=== PATIENT | female | born 1945 | race Caucasian/White ===

== ENCOUNTER 2022-02-05 09:53 | Emergency (ER) | payer MEDICARE, SELFPAY ==
[2022-02-05] VITALS (16 sets, daily range): BP systolic 130–178; BP diastolic 60–77; PULSE 54–93; RESP 18–20; TEMP 36.3; O2SAT 93–97
--- NOTE | 2022-02-05 09:55 | DI.RAD.S_ITS ---
PROCEDURE: XR CHEST 1V INDICATIONS: chest pain TECHNIQUE: One view of the chest was acquired. COMPARISON: None. FINDINGS: Surgical changes and devices: None. Lungs and pleura: Right lateral upper lobe pleuroparenchymal thickening and tethering of the major fissure. Mild asymmetric elevation of the right lateral hemidiaphragm. Left lung is normally aerated. Mediastinum: Mediastinal contours appear normal. Heart size is normal. Bones and chest wall: No suspicious bony lesions. Overlying soft tissues appear unremarkable. Mild to moderate osteoarthritic change in both glenohumeral joints. T12 and probably L2 compression fractures. IMPRESSION: 1. Right hemithorax volume loss right subpleural upper lobe pleural thickening and probable scarring. This may be postsurgical, post infectious, or post treatment. Acute process is less likely. 2. Thoracolumbar compression fractures. Dictated by: Danita Clemons M.D. on 02/05/2022 at 9:31 Approved by: Danita Clemons M.D. on 02/05/2022 at 9:33
--- NOTE | 2022-02-05 09:59 | ED.CHESTPAIN ---
HPI - Chest Pain General Chief Complaint: Chest Pain Stated Complaint: COVID 1 wk ago, weakness Time Seen by Provider: 02/05/22 09:55 History of Present Illness HPI narrative: 76-year-old female nonsmoker with recent COVID diagnosis presents with a reproducible sharp and stabbing right anterior chest pain for the past few days. She is been at a local adult home and has been taking Paxlovid. She denies runny nose, sore throat. She has had frequent cough. She denies nausea, vomiting or diarrhea. She has right anterior chest pain that is worse with deep breath or palpation. She denies dizziness or lightheadedness. She is had no sputum production. She was admitted at an outside facility a few weeks ago Related Data Allergies Allergy/AdvReac Type Severity Reaction Status Date / Time No Known Drug Allergies Allergy Verified 02/05/22 10:14 Review of Systems Review of Systems Narrative: GENERAL: See HPI HEENT: See HPI RESPIRATORY: See HPI CARDIOVASCULAR: See HPI GASTROINTESTINAL: Denies nausea, vomiting, abdominal pain, diarrhea, constipation, melena. : Denies dysuria, frequency, incontinence, hematuria, urinary retention. MUSCULOSKELETAL: denies weakness, joint pain, or bony pain SKIN: Denies rash, skin lesions, or other NEUROLOGIC: Denies weakness, headache, numbness, change in speech, confusion, seizures, incoordination. PSYCHIATRIC: No concerning psychosocial issues. 12 point review of systems is negative except for those stated above Patient History Social History Smoking Status: Former smoker Exam Narrative Exam Narrative: GENERAL: [76] year old patient appears stated age. Well-developed patient, in mild distress. No hypoxemia or work of breathing HEAD: Atraumatic. Normocephalic. EYES: Pupils equal round and reactive. Extraocular motions intact. No scleral icterus. No injection or drainage. ENT: Nose without bleeding, purulent drainage. Throat without erythema, tonsillar hypertrophy or exudate. Airway patent. NECK: Trachea midline. No midline bony tenderness, step-offs or crepitance. No pain with axial loading. She does have tenderness to palpate in the right-sided paraspinal musculature which seems to be exacerbated by turning her head to the right and use of her right arm. CARDIOVASCULAR: Regular rate and rhythm without murmurs, gallops, or rubs. Right anterior chest tender to palpate, she states this palpation exacerbates the pain that brought her in RESPIRATORY: Clear to auscultation. Breath sounds equal bilaterally. No wheezes, rales, or rhonchi. GASTROINTESTINAL: Abdomen soft, non-tender, nondistended. EXTREMITIES: No edema or joint tenderness. No pain, redness or swelling, most notably no pain whatsoever in her arm BACK: Nontender without deformity or crepitance. No flank tenderness. NEURO: AOx3. SKIN: No rash or erythema of visible areas Initial Vital Signs Initial Vital Signs: Vital Signs Pulse Rate 54 L 02/05/22 09:53 Course Course Course Narrative: Patient had been admitted at an outside facility at the end of December in [place] ([facility]) with chief diagnosis of heavy cough in the setting of back pain and right shoulder pain and was found to have a large consolidation in the right upper lobe with central areas of cavitations concerning for necrotizing pneumonia. She had been Orders Ordered: ED Orders 02/05/22 09:55 XR chest 1V Stat 02/05/22 10:22 EKG-12 Lead Stat 02/05/22 11:05 C-Reactive Protein Quant Stat Complete Blood Count AUTO DIFF Stat Comprehensive Metabolic Panel Stat D Dimer Stat ESR [Erythrocyte Sedimentation Rate] Stat Lactate (Lactic Acid) Stat Magnesium Stat NT-proBNP (BNP-Adult 18+) Stat Procalcitonin Stat Prothrombin Time INR Stat Troponin & CK Cardiac Panel Stat 02/05/22 12:43 CT angio chest PE protocol Stat Discontinued Medications Sodium Chloride (Normal Saline 0.9%) 1,000 mls @ 1,000 mls/hr IV BOLUS ONE Stop: 02/05/22 10:54 Last Admin: 02/05/22: Dose: 1,000 mls/hr Documented By: YARI Vital Signs Vital signs: Vital Signs - 8 hr 02/05/22 10:07 02/05/22 09:53 02/05/22 09:55 Temperature 97.3 F L Pulse Rate 80 54 L 81 Respiratory Rate 20 Blood Pressure 148/72 H Pulse Oximetry 96 96 Oxygen Delivery Method Room Air 02/05/22 09:55 02/05/22 10:00 02/05/22 10:00 Temperature Pulse Rate 80 Respiratory Rate Blood Pressure 148/72 H 143/71 H Pulse Oximetry 97 Oxygen Delivery Method 02/05/22 10:30 02/05/22 10:30 02/05/22 11:00 Temperature Pulse Rate 82 Respiratory Rate Blood Pressure 147/72 H 149/74 H Pulse Oximetry 96 Oxygen Delivery Method 02/05/22 11:00 02/05/22 11:21 02/05/22 11:30 Temperature Pulse Rate 82 87 Respiratory Rate Blood Pressure 139/67 Pulse Oximetry 95 95 Oxygen Delivery Method 02/05/22 12:24 02/05/22 12:25 02/05/22 12:25 Temperature Pulse Rate 90 93 H Respiratory Rate Blood Pressure 141/69 H Pulse Oximetry 95 97 Oxygen Delivery Method 02/05/22 12:30 02/05/22 12:30 02/05/22 13:00 Temperature Pulse Rate 91 H Respiratory Rate Blood Pressure 130/60 147/71 H Pulse Oximetry 97 Oxygen Delivery Method 02/05/22 13:00 02/05/22 13:30 02/05/22 14:00 Temperature Pulse Rate 83 88 91 H Respiratory Rate Blood Pressure Pulse Oximetry 94 94 93 Oxygen Delivery Method 02/05/22 14:22 Temperature Pulse Rate Respiratory Rate 19 Blood Pressure Pulse Oximetry Oxygen Delivery Method MDM - Chest Pain Lab Data Result diagrams: 02/05/22 11:05 02/05/22 11:05 Labs: Lab Results 02/05/22 02/05/22 02/05/22 Range/Units 11:05 11:05 11:05 WBC 14.6 H (4.5-11.0) X10^3/uL RBC 3.29 L (4.0-5.2) X10^6/uL Hgb 10.6 L (12.0-16.0) g/dL Hct 31.7 L (36-46) % MCV 96.2 (80-100) fL MCH 32.2 (26-34) PG MCHC 33.4 (30-36) % RDW 15.1 H (11.6-14.8) % Plt Count 444 H (150-400) X10^3/uL Neut % (Auto) 84.2 H (50-75) % Lymph % (Auto) 6.1 L (25-40) % [place] % (Auto) 9.2 (3-14) % Eos % (Auto) 0.0 L (2-4) % Baso % (Auto) 0.5 (0-2) % Neut # (Auto) 57233 H (9971-3894) /uL Lymph # (Auto) 900 L (9777-3889) /uL [place] # (Auto) 1300 H (0-900) /uL Eos # (Auto) 0 (0-450) /uL Baso # (Auto) 100 (0-100) /uL ESR > 140 H (0-20) MM/HR PT (10.1-12.7) SECONDS INR (0.9-1.3) D-Dimer (<500) ng/ml Sodium (137-145) mmol/L Potassium (3.4-5.1) mmol/L Chloride (98-107) mmol/L Carbon Dioxide (22-32) mmol/L BUN (7-17) mg/dL Creatinine (0.52-1.04) mg/dL Estimated GFR (>60) mL/min BUN/Creatinine Ratio (6-22) Glucose (80-110) mg/dL Lactate (0.7-2.1) mmol/L Calcium (8.4-10.2) mg/dL Magnesium (1.6-2.3) mg/dL Total Bilirubin (0.2-1.3) mg/dL AST (14-36) IU/L ALT (<35) IU/L Alkaline Phosphatase (38-126) U/L Total Creatine Kinase (30-135) U/L CK-MB (CK-2) CK-MB (CK-2) Rel Index Troponin I (0.01-0.034) ng/mL C-Reactive Protein 8.4 H (<1.0) mg/dL NT-Pro-B Natriuret Pep (<125) pg/mL Total Protein (6.3-8.2) g/dL Albumin (3.5-5.0) g/dL Globulin (1.7-4.1) g/dL Albumin/Globulin Ratio (1.0-2.8) Procalcitonin 0.10 (<0.5) ng/mL 02/05/22 02/05/22 02/05/22 Range/Units 11:05 11:05 11:05 WBC (4.5-11.0) X10^3/uL RBC (4.0-5.2) X10^6/uL Hgb (12.0-16.0) g/dL Hct (36-46) % MCV (80-100) fL MCH (26-34) PG MCHC (30-36) % RDW (11.6-14.8) % Plt Count (150-400) X10^3/uL Neut % (Auto) (50-75) % Lymph % (Auto) (25-40) % [place] % (Auto) (3-14) % Eos % (Auto) (2-4) % Baso % (Auto) (0-2) % Neut # (Auto) (2499-9684) /uL Lymph # (Auto) (2171-7037) /uL [place] # (Auto) (0-900) /uL Eos # (Auto) (0-450) /uL Baso # (Auto) (0-100) /uL ESR (0-20) MM/HR PT 14.0 H (10.1-12.7) SECONDS INR 1.2 (0.9-1.3) D-Dimer (<500) ng/ml Sodium 134 L (137-145) mmol/L Potassium 3.3 L (3.4-5.1) mmol/L Chloride 94 L (98-107) mmol/L Carbon Dioxide 30 (22-32) mmol/L BUN 15 (7-17) mg/dL Creatinine 0.81 (0.52-1.04) mg/dL Estimated GFR > 60 (>60) mL/min BUN/Creatinine Ratio 18.5 (6-22) Glucose 118 H (80-110) mg/dL Lactate 1.0 (0.7-2.1) mmol/L Calcium 8.7 (8.4-10.2) mg/dL Magnesium 1.4 L (1.6-2.3) mg/dL Total Bilirubin 0.6 (0.2-1.3) mg/dL AST 26 (14-36) IU/L ALT 16 (<35) IU/L Alkaline Phosphatase 125 (38-126) U/L Total Creatine Kinase < 20 L (30-135) U/L CK-MB (CK-2) TNP CK-MB (CK-2) Rel Index TNP Troponin I < 0.012 (0.01-0.034) ng/mL C-Reactive Protein (<1.0) mg/dL NT-Pro-B Natriuret Pep 446 H (<125) pg/mL Total Protein 8.1 (6.3-8.2) g/dL Albumin 3.7 (3.5-5.0) g/dL Globulin 4.4 H (1.7-4.1) g/dL Albumin/Globulin Ratio 0.8 L (1.0-2.8) Procalcitonin (<0.5) ng/mL 02/05/22 Range/Units 11:05 WBC (4.5-11.0) X10^3/uL RBC (4.0-5.2) X10^6/uL Hgb (12.0-16.0) g/dL Hct (36-46) % MCV (80-100) fL MCH (26-34) PG MCHC (30-36) % RDW (11.6-14.8) % Plt Count (150-400) X10^3/uL Neut % (Auto) (50-75) % Lymph % (Auto) (25-40) % [place] % (Auto) (3-14) % Eos % (Auto) (2-4) % Baso % (Auto) (0-2) % Neut # (Auto) (7302-7678) /uL Lymph # (Auto) (0802-6124) /uL [place] # (Auto) (0-900) /uL Eos # (Auto) (0-450) /uL Baso # (Auto) (0-100) /uL ESR (0-20) MM/HR PT (10.1-12.7) SECONDS INR (0.9-1.3) D-Dimer 1343 H (<500) ng/ml Sodium (137-145) mmol/L Potassium (3.4-5.1) mmol/L Chloride (98-107) mmol/L Carbon Dioxide (22-32) mmol/L BUN (7-17) mg/dL Creatinine (0.52-1.04) mg/dL Estimated GFR (>60) mL/min BUN/Creatinine Ratio (6-22) Glucose (80-110) mg/dL Lactate (0.7-2.1) mmol/L Calcium (8.4-10.2) mg/dL Magnesium (1.6-2.3) mg/dL Total Bilirubin (0.2-1.3) mg/dL AST (14-36) IU/L ALT (<35) IU/L Alkaline Phosphatase (38-126) U/L Total Creatine Kinase (30-135) U/L CK-MB (CK-2) CK-MB (CK-2) Rel Index Troponin I (0.01-0.034) ng/mL C-Reactive Protein (<1.0) mg/dL NT-Pro-B Natriuret Pep (<125) pg/mL Total Protein (6.3-8.2) g/dL Albumin (3.5-5.0) g/dL Globulin (1.7-4.1) g/dL Albumin/Globulin Ratio (1.0-2.8) Procalcitonin (<0.5) ng/mL Urine Dip Bedside Urine Glucose Negative Bedside Urine Bilirubin - Negative Bedside Urine Ketone - Negative Urine Specific [place] 1.01 Bedside Urine Occult Blood - Negative Bedside Urine pH 7 Bedside Urine Protein - Negative Bedside Urine Urobilinogen - Negative Bedside Urine Nitrite - Negative Bedside Urine Leukocytes - Negative Esterase Imaging Data CT scan - chest: Radiologist's Impression: Close Chest CTA (Signed) Danita Clemons - 02/05/22 Chest X-Ray 02/05/22 [place] [address] CT Scan Report Signed Patient: Lindsey Kemp MR#: [id number] : 1945 Acct:[id number] Age/Sex: 76 / F Date of Service: 02/05/22 Loc: ED Accession Number: [id number] ?? Procedure: CT angio chest PE protocol Ordering Provider: Chuckie El D.O. PROCEDURE:? CT ANGIO CHEST PE PROTOCOL ? INDICATIONS:? chest pain, cough, SOB, critical dimer ? TECHNIQUE:? After the administration of intravenous contrast, 2 mm thick sections acquired from the pulmonary apices to the posterior costophrenic angles.? 3-dimensional maximum intensity projection (MIP) coronal and sagittal reformats were then acquired through the thorax.? For radiation dose reduction, the following was used:? automated exposure control, adjustment of mA and/or kV according to patient size.? ? COMPARISON:? None. ? FINDINGS:? Image quality:? Excellent.? ? Pulmonary arteries:? Pulmonary arteries are normal in size, and demonstrate no intraluminal filling defects to suggest central pulmonary embolism.? ? Lungs and pleura:? Central airways are patent.? There is bronchiectasis amidst consolidative change in the medial and caudal right middle lobe.? There is airway occlusion and distal consolidation anteriorly in the lingula.? There is cavitary wedge-shaped area of consolidation with bronchiectasis in the right lateral upper lobe.? There is adjacent parenchymal septal thickening and superior retraction central hilar structures.? There are short segments of pleural calcification within this region.? Left apical pleural thickening and trace calcification.? There are scattered subpleural and parenchymal cysts as well as mild upper lobe centrilobular emphysema. ? Mediastinum:? Heart size is mildly enlarged and there is a small pericardial effusion layering to the right.? There is heavy coronary artery calcification..? Borderline precarinal adenopathy.? One of the largest measures 10 mm in short axis.? No definite hilar adenopathy.? Thoracic aorta is normal in caliber and enhancement.? Esophagus is normal in caliber, without hiatal hernia.? ? Bones and chest wall:? There are multiple compression fractures in the thoracic spine and upper lumbar spine, specifically T7, T9 T12, and L2.? Minimal retropulsion of fracture fragments at T9 and T12.? No suspicious bone lesions in the other osseous structures.? Borderline bilateral axillary adenopathy.? The thyroid gland is normal. ? Abdomen:? Nonobstructing left lower pole intrarenal calcification, and one on the right.? Right posterior cortical renal cyst.? Upper abdominal organs are otherwise normal.? There is heavy abdominal aortic calcification. ? IMPRESSION:? ? 1. No pulmonary embolus. ? 2. Right lateral upper lobe cavitary consolidation with air bronchograms and scarring.? This is likely chronic although an underlying or superimposed infection may be present.? Neoplasm should be considered.? Correlate with patient history. ? 3. 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 ? 3. Findings superimposed on emphysema and scattered parenchymal cysts. ? 4. Cardiomegaly with heavy coronary artery calcification.? Small pericardial effusion present. ? 5. Multiple compression fractures in the thoracolumbar spine.? ? ? Dictated by: Danita Clemons M.D. on 02/05/2022 at 12:53 ? ? Approved by: Danita Clemons M.D. on 02/05/2022 at 13:09 ? [facility] Narrative Medical decision making narrative: Patient presents with a sharp and stabbing reproducible right anterior chest pain that worse with palpation and on some level deep breath. She is had no shortness of breath, fever, chills or increased work of breathing. Images today were obtained and likely reflect ongoing inflammatory change from her previous hospitalization. Discussed with Radiology, this is significantly improved over the radiology report from outside facility. Patient has no increased work of breathing, hypoxemia or other. She is given anti-inflammatories, I did however send antibiotic coverage for possible infectious component in addition. Return precautions discussed and questions answered to her apparent satisfaction
[2022-02-05] MEDS: SODIUM CHLORIDE 0.9% 1,000 ML 1000 ML IV (10:22)
[2022-02-05 11:30] LABS: Add Manual Diff / Slide Review NO; Basophils Absolute Auto 100 /uL (0-100); Basophils Percent Auto 0.5 % (0-2); Eosinophils Absolute Auto 0 /uL (0-450); Hematocrit 31.7 % (36-46); Hemoglobin 10.6 g/dL (12.0-16.0); Lymphocytes Absolute Auto 900 /uL (1100-4500); Lymphocytes Percent Auto 6.1 % (25-40); Mean Corpuscular HGB Conc 33.4 % (30-36); Mean Corpuscular Hemoglobin 32.2 PG (26-34); Mean Corpuscular Volume 96.2 fL (80-100); Monocytes Absolute Auto 1300 /uL (0-900); Monocytes Percent Auto 9.2 % (3-14); Neutrophils Absolute Auto 12300 /uL (1500-7000); Neutrophils Percent Auto 84.2 % (50-75); Platelet Count 444 X10^3/uL (150-400); Red Blood Cell Count 3.29 X10^6/uL (4.0-5.2); Red Cell Distribution Width 15.1 % (11.6-14.8); White Blood Cell Count 14.6 X10^3/uL (4.5-11.0)
[2022-02-05 11:34] LABS: Alanine Aminotransferase 16 IU/L (<35); Albumin 3.7 g/dL (3.5-5.0); Albumin Globulin Ratio 0.8 (1.0-2.8); Alkaline Phosphatase 125 U/L (38-126); Aspartate Aminotransferase 26 IU/L (14-36); BUN Creatinine Ratio 18.5 (6-22); Bilirubin Total 0.6 mg/dL (0.2-1.3); Blood Urea Nitrogen 15 mg/dL (7-17); Calcium 8.7 mg/dL (8.4-10.2); Carbon Dioxide 30 mmol/L (22-32); Chloride 94 mmol/L (98-107); Creatine Kinase < 20 U/L (30-135); Estimated Glomerular Filt Rate > 60 mL/min (>60); Globulin 4.4 g/dL (1.7-4.1); Glucose 118 mg/dL (80-110); HEMOLYSIS < 15 (0-50); Magnesium 1.4 mg/dL (1.6-2.3); Potassium 3.3 mmol/L (3.4-5.1); Sodium 134 mmol/L (137-145); Total Protein 8.1 g/dL (6.3-8.2)
[2022-02-05 11:36] LABS: INR 1.2 (0.9-1.3)
[2022-02-05 11:38] LABS: C-Reactive Protein Quant 8.4 mg/dL (<1.0)
[2022-02-05 11:46] LABS: NT-proBNP (BNP-Adult 18+) 446 pg/mL (<125); Troponin I < 0.012 ng/mL (0.01-0.034)
[2022-02-05 12:06] LABS: D Dimer 1343 ng/ml (<500)
[2022-02-05 12:31] LABS: Erythrocyte Sedimentation Rate > 140 MM/HR (0-20)
--- NOTE | 2022-02-05 12:43 | DI.CT.S_ITS ---
PROCEDURE: CT ANGIO CHEST PE PROTOCOL INDICATIONS: chest pain, cough, SOB, critical dimer TECHNIQUE: After the administration of intravenous contrast, 2 mm thick sections acquired from the pulmonary apices to the posterior costophrenic angles. 3-dimensional maximum intensity projection (MIP) coronal and sagittal reformats were then acquired through the thorax. For radiation dose reduction, the following was used: automated exposure control, adjustment of mA and/or kV according to patient size. COMPARISON: None. FINDINGS: Image quality: Excellent. Pulmonary arteries: Pulmonary arteries are normal in size, and demonstrate no intraluminal filling defects to suggest central pulmonary embolism. Lungs and pleura: Central airways are patent. There is bronchiectasis amidst consolidative change in the medial and caudal right middle lobe. There is airway occlusion and distal consolidation anteriorly in the lingula. There is cavitary wedge-shaped area of consolidation with bronchiectasis in the right lateral upper lobe. There is adjacent parenchymal septal thickening and superior retraction central hilar structures. There are short segments of pleural calcification within this region. Left apical pleural thickening and trace calcification. There are scattered subpleural and parenchymal cysts as well as mild upper lobe centrilobular emphysema. Mediastinum: Heart size is mildly enlarged and there is a small pericardial effusion layering to the right. There is heavy coronary artery calcification.. Borderline precarinal adenopathy. One of the largest measures 10 mm in short axis. No definite hilar adenopathy. Thoracic aorta is normal in caliber and enhancement. Esophagus is normal in caliber, without hiatal hernia. Bones and chest wall: There are multiple compression fractures in the thoracic spine and upper lumbar spine, specifically T7, T9 T12, and L2. Minimal retropulsion of fracture fragments at T9 and T12. No suspicious bone lesions in the other osseous structures. Borderline bilateral axillary adenopathy. The thyroid gland is normal. Abdomen: Nonobstructing left lower pole intrarenal calcification, and one on the right. Right posterior cortical renal cyst. Upper abdominal organs are otherwise normal. There is heavy abdominal aortic calcification. IMPRESSION: 1. No pulmonary embolus. 2. Right lateral upper lobe cavitary consolidation with air bronchograms and scarring. This is likely chronic although an underlying or superimposed infection may be present. Neoplasm should be considered. Correlate with patient history. 3. 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 3. Findings superimposed on emphysema and scattered parenchymal cysts. 4. Cardiomegaly with heavy coronary artery calcification. Small pericardial effusion present. 5. Multiple compression fractures in the thoracolumbar spine. Dictated by: Danita Clemons M.D. on 02/05/2022 at 12:53 Approved by: Danita Clemons M.D. on 02/05/2022 at 13:09
[2022-02-05] MEDS: AMOXICILLIN/CLAV 875/125 MG 1 TAB PO (16:38)
[2022-02-05] MEDS: KETOROLAC 30 MG/ML VIAL 15 MG IV (16:38)
== END 2022-02-05 16:15 | disposition home or self-care (01) ==
PROVIDERS: Emergency Provider Emergency Medicine; Referring Provider Emergency Medicine
DX: R07.89 Other chest pain (principal); Z79.01 Long term (current) use of anticoagulants; Z86.16 Personal history of COVID-19
CPT/HCPCS: 36415; 71045; 71275; 80053; 81003; 82550; 83605; 83735; 83880; 84145; 84484; 85025; 85379; 85610; 85651; 86140; 93005; 93010; 96361; 96374; 99284; J1885; Q9967

== ENCOUNTER 2022-02-14 14:01 | Inpatient (IN) | payer MEDICARE, SELFPAY ==
[2022-02-14] VITALS (13 sets, daily range): BP systolic 124–145; BP diastolic 63–77; PULSE 73–84; RESP 14–22; TEMP 35.9–36.6; O2SAT 97–100; BMI 21.9
--- NOTE | 2022-02-14 14:25 | DI.CT.S_ITS ---
PROCEDURE: CT STROKE INDICATIONS: facial numbness, left arm numbness/weakness TECHNIQUE: Noncontrast 4.5 mm thick angled axial sections acquired from the foramen magnum to the vertex, with coronal reformats. For radiation dose reduction, the following was used: automated exposure control, adjustment of mA and/or kV according to patient size. COMPARISON: [facility], CT, CT ANGIO HEAD AND NECK, 02/14/2022, 14:31. FINDINGS: Image quality: Excellent. CSF spaces: Basal cisterns are patent. No extra-axial fluid collections. The ventricles are mildly prominent in relation to gyral and sulcal atrophy. Brain: No intracranial bleeds or masses. There is cerebral volume loss for age, with resultant ventricular and sulcal prominence. There are periventricular and deep white matter chronic small vessel ischemic changes. There is intracranial internal carotid artery atherosclerosis. Skull and face: Calvarium and visualized facial bones appear intact, without suspicious lesions. Sinuses: Visualized sinuses and mastoids are clear. IMPRESSION: 1. No acute intracranial process. 2. Moderate atrophy and chronic microvascular ischemic changes. 3. Ventricles are mildly prominent in relation to gyral and sulcal atrophy. While this could be a more central atrophy pattern, recommend correlation to physical symptoms as normal pressure hydrocephalus cannot be excluded. The above findings were discussed with Dr. Chuckie El on 02/14/2022 at 2:57 p.m This study fulfills neurological imaging criteria for inclusion or exclusion of acute stroke therapies based on available published neurological guidelines. Dictated by: Melissa Hdez M.D. on 02/14/2022 at 14:55 Approved by: Melissa Hdez M.D. on 02/14/2022 at 15:02
--- NOTE | 2022-02-14 14:26 | DI.CT.S_ITS ---
PROCEDURE: CT ANGIO HEAD AND NECK INDICATIONS: facial numbness, left arm numbness/weakness TECHNIQUE: After the administration of intravenous contrast, 1 mm thick sections acquired from the aortic arch through the [place] [employer]. Post-contrast 4.5 mm thick sections then re-acquired from the foramen magnum to the vertex. 3-dimensional zyzbhtg-kyfdnoicr-hbgpmiynsz (MIP) and/or volume rendering reformats were acquired of the central intracranial vasculature and neck separately. For radiation dose reduction, the following was used: automated exposure control, adjustment of mA and/or kV according to patient size. COMPARISON: None. FINDINGS: Image quality: Excellent. BRAIN: The ventricular system and cortical sulci demonstrate atrophy, consistent for the patient's stated age. There are areas of hypodensity within the periventricular and subcortical white matter. There is no acute intra-or extra axial fluid collection. No acute hemorrhage, mass lesion or midline shift. Brainstem is unremarkable. Globes are symmetrical. Sinuses are aerated. Osseous structures are intact. HEAD CT ANGIOGRAPHY: Anterior circulation: There is less than 50% narrowing of the supraclinoid internal carotid arteries bilaterally. The flow within the paired anterior cerebral arteries is normal and symmetric. The flow within the middle cerebral arteries is normal and symmetric. The anterior communicating artery is seen. No aneurysms are seen. Posterior circulation: There is a left vertebral artery dominance. Visualized portions of the vertebral arteries demonstrate normal caliber, and join to form a normal appearing basilar artery. Flow within the posterior cerebral arteries is normal and symmetric. No aneurysms are seen. NECK CT ANGIOGRAPHY: The origins of the left and right common, and external carotid arteries demonstrate no areas of hemodynamically significant stenosis, vascular occlusion or aneurysmal dilation there is approximate 20-30% narrowing at the origins of the internal carotid arteries bilaterally. Origin the right vertebral artery demonstrates no areas of hemodynamically significant stenosis, vascular occlusion or aneurysmal dilation. 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 There is approximate 50-60% stenosis at the origin. Aortic arch demonstrates conventional anatomy. Limited, visualized portions of the subclavian vasculature are unremarkable. IMPRESSION: 1. No acute intracranial process. 2. Moderate atrophy and chronic microvascular ischemic changes. 3. Less than 50% narrowing of the supraclinoid internal carotid arteries bilaterally. 4. Approximate 50-60% stenosis at of the left vertebral artery origin. 5. Approximate 20-30% narrowing at the origin of the internal carotid arteries bilaterally. Any quantitative measurements of stenosis were performed using NASCET criteria. Dictated by: Melissa Hdez M.D. on 02/14/2022 at 15:03 Approved by: Melissa Hdez M.D. on 02/14/2022 at 15:10
[2022-02-14 14:45] LABS: Add Manual Diff / Slide Review NO; Basophils Absolute Auto 100 /uL (0-100); Basophils Percent Auto 0.8 % (0-2); Eosinophils Absolute Auto 0 /uL (0-450); Eosinophils Percent Auto 0.1 % (2-4); Hematocrit 30.3 % (36-46); Hemoglobin 10.2 g/dL (12.0-16.0); Lymphocytes Absolute Auto 1300 /uL (1100-4500); Mean Corpuscular HGB Conc 33.5 % (30-36); Mean Corpuscular Hemoglobin 32.1 PG (26-34); Mean Corpuscular Volume 95.9 fL (80-100); Monocytes Absolute Auto 1300 /uL (0-900); Monocytes Percent Auto 13.6 % (3-14); Neutrophils Absolute Auto 6700 /uL (1500-7000); Neutrophils Percent Auto 71.5 % (50-75); Platelet Count 637 X10^3/uL (150-400); Red Blood Cell Count 3.16 X10^6/uL (4.0-5.2); Red Cell Distribution Width 15.5 % (11.6-14.8); White Blood Cell Count 9.4 X10^3/uL (4.5-11.0)
[2022-02-14 14:57] LABS: Alanine Aminotransferase 27 IU/L (<35); Albumin 3.8 g/dL (3.5-5.0); Albumin Globulin Ratio 0.8 (1.0-2.8); Alkaline Phosphatase 185 U/L (38-126); Aspartate Aminotransferase 43 IU/L (14-36); BUN Creatinine Ratio 14.5 (6-22); Bilirubin Total 0.3 mg/dL (0.2-1.3); Blood Urea Nitrogen 12 mg/dL (7-17); Calcium 9.2 mg/dL (8.4-10.2); Carbon Dioxide 26 mmol/L (22-32); Chloride 94 mmol/L (98-107); Creatine Kinase < 20 U/L (30-135); Estimated Glomerular Filt Rate > 60 mL/min (>60); Globulin 4.6 g/dL (1.7-4.1); Glucose 125 mg/dL (80-110); HEMOLYSIS < 15 (0-50); Potassium 3.1 mmol/L (3.4-5.1); Sodium 135 mmol/L (137-145); Total Protein 8.4 g/dL (6.3-8.2)
[2022-02-14] MEDS: SODIUM CHLORIDE 0.9% 1,000 ML 150 ML IV (15:03)
[2022-02-14 15:09] LABS: Troponin I < 0.012 ng/mL (0.01-0.034)
--- NOTE | 2022-02-14 15:14 | ED_ITS ---
HPI - Neuro Symptoms/Deficit General Chief Complaint: Neuro Symptoms/Deficit Stated Complaint: lt arm numb up to face Time Seen by Provider: 02/14/22 14:25 Source: patient Mode of arrival: Ambulatory History of Present Illness HPI Narrative: 76-year-old female nonsmoker with recent COVID diagnosis presents?with a chief complaint of left arm numbness, tingling and weakness along with left facial numbness and tingling since 10:00 a.m. yesterday (26 hours). She denies blurred vision or trouble with speech. She has no difficulty finding words. She denies any dizziness or lower extremity numbness, tingling or weakness. She denies rec ent trauma or injury. She denies fever or chills. She was here 10 days ago with a chief complaint of a reproducible sharp and stabbing chest pain with an elevated D-dimer and had a significant evaluation including CT angiogram, in the end she was found to have atypical chest pain. She is otherwise well and free of complaint. On Anticoagulants: No Related Data Previous Rx's Medication Instructions Recorded amoxicillin 875 mg-potassium 1 tab PO Q12H #20 tabs 02/05/22 clavulanate 125 mg tablet ketorolac 10 mg tablet 10 mg PO Q6H PRN pain #14 tabs 02/05/22 Allergies Allergy/AdvReac Type Severity Reaction Status Date / Time No Known Drug Allergies Allergy Verified 02/05/22 10:14 Review of Systems Review of Systems Narrative: GENERAL: Denies chills, fatigue, malaise, fever, sweats. HEENT: Denies sinus pain, ear pain, sore throat, difficulty swallowing, dizziness. RESPIRATORY: Denies dyspnea, cough, wheezing, hemoptysis, sputum. CARDIOVASCULAR: Denies chest pain, palpitations, orthopnea, edema, GASTROINTESTINAL: Denies nausea, vomiting, abdominal pain, diarrhea, constipation, melena. : Denies dysuria, frequency, incontinence, hematuria, urinary retention. MUSCULOSKELETAL: denies weakness, joint pain, or bony pain SKIN: Denies rash, skin lesions, or other NEUROLOGIC: See HPI PSYCHIATRIC: No concerning psychosocial issues. 12 point review of systems is negative except for those stated above Hematologic/Lymphatic On Anticoagulants: No Patient History Social History Smoking Status: Former smoker Smoking Status: Former smoker alcohol intake frequency: 0-2 drinks per day Substance Use Type: does not use Exam Narrative Exam Narrative: GENERAL: [76] year old patient appears stated age. Well-developed patient, in mild distress. HEAD: Atraumatic. Normocephalic. EYES: Pupils equal round and reactive. Extraocular motions intact. No scleral icterus. No injection or drainage. ENT: Nose without bleeding, purulent drainage. Throat without erythema, tonsillar hypertrophy or exudate. Airway patent. NECK: Trachea midline. Non tender, no pain on palpation or axial loading CARDIOVASCULAR: Regular rate and rhythm without murmurs, gallops, or rubs. RESPIRATORY: Clear to auscultation. Breath sounds equal bilaterally. No wheezes, rales, or rhonchi. GASTROINTESTINAL: Abdomen soft, non-tender, nondistended. EXTREMITIES: No edema or joint tenderness. BACK: Nontender without deformity or crepitance. No flank tenderness. NEURO: AOx3. SKIN: No rash or erythema of visible areas Initial Vital Signs Initial Vital Signs: Vital Signs Temperature 97.9 F 02/14/22 14:05 Pulse Rate 83 02/14/22 14:05 Respiratory Rate 20 02/14/22 14:05 Blood Pressure 139/77 02/14/22 14:05 Pulse Oximetry 98 02/14/22 14:05 Oxygen Delivery Method 02/14/22 14:05 Course Orders Ordered: ED Orders 02/14/22 14:25 CT Stroke Stat Urine Drug Screen, Rapid Stat EKG-12 Lead Stat 02/14/22 14:26 CT angio head and neck Stat 02/14/22 14:32 Complete Blood Count AUTO DIFF Stat Comprehensive Metabolic Panel Stat Troponin & CK Cardiac Panel Stat 02/14/22 16:39 COVID19 -Nasal RAPID/Pre-Proc Stat Sodium Chloride (Normal Saline 0.9%) 1,000 mls @ 150 mls/hr IV CONT MARSHALL Last Admin: 02/14/22 15:03 Dose: 150 mls/hr Documented By: RLS Discontinued Medications Aspirin (Aspirin 81 Mg Chew Tab) 324 mg PO NOW ONE Stop: 02/14/22 16:25 Vital Signs Vital signs: Vital Signs - 8 hr 02/14/22 14:05 02/14/22 14:26 02/14/22 14:30 Temperature 97.9 F Pulse Rate 83 79 79 Respiratory Rate 20 21 17 Blood Pressure 139/77 Pulse Oximetry 98 98 100 Oxygen Delivery Method Room Air 02/14/22 14:50 02/14/22 14:50 02/14/22 15:00 Temperature Pulse Rate 84 Respiratory Rate 19 Blood Pressure 138/65 128/63 Pulse Oximetry 100 Oxygen Delivery Method 02/14/22 15:00 02/14/22 15:30 02/14/22 15:30 Temperature Pulse Rate 76 73 Respiratory Rate 18 15 Blood Pressure 145/67 H Pulse Oximetry 100 98 Oxygen Delivery Method 02/14/22 16:00 02/14/22 16:00 Temperature Pulse Rate 76 Respiratory Rate 16 Blood Pressure 138/65 Pulse Oximetry 98 Oxygen Delivery Method MDM - Neuro Symptoms/Deficit Lab Data Result diagrams: 02/14/22 14:32 02/14/22 14:32 Labs: Lab Results 02/14/22 02/14/22 Range/Units 14:32 14:32 WBC 9.4 (4.5-11.0) X10^3/uL RBC 3.16 L (4.0-5.2) X10^6/uL Hgb 10.2 L (12.0-16.0) g/dL Hct 30.3 L (36-46) % MCV 95.9 (80-100) fL MCH 32.1 (26-34) PG MCHC 33.5 (30-36) % RDW 15.5 H (11.6-14.8) % Plt Count 637 H (150-400) X10^3/uL Neut % (Auto) 71.5 (50-75) % Lymph % (Auto) 14.0 L (25-40) % [place] % (Auto) 13.6 (3-14) % Eos % (Auto) 0.1 L (2-4) % Baso % (Auto) 0.8 (0-2) % Neut # (Auto) 6700 (8377-0064) /uL Lymph # (Auto) 1300 (4690-9296) /uL [place] # (Auto) 1300 H (0-900) /uL Eos # (Auto) 0 (0-450) /uL Baso # (Auto) 100 (0-100) /uL Sodium 135 L (137-145) mmol/L Potassium 3.1 L (3.4-5.1) mmol/L Chloride 94 L (98-107) mmol/L Carbon Dioxide 26 (22-32) mmol/L BUN 12 (7-17) mg/dL Creatinine 0.83 (0.52-1.04) mg/dL Estimated GFR > 60 (>60) mL/min BUN/Creatinine Ratio 14.5 (6-22) Glucose 125 H (80-110) mg/dL Calcium 9.2 (8.4-10.2) mg/dL Total Bilirubin 0.3 (0.2-1.3) mg/dL AST 43 H (14-36) IU/L ALT 27 (<35) IU/L Alkaline Phosphatase 185 H (38-126) U/L Total Creatine Kinase < 20 L (30-135) U/L CK-MB (CK-2) TNP CK-MB (CK-2) Rel Index TNP Troponin I < 0.012 (0.01-0.034) ng/mL Total Protein 8.4 H (6.3-8.2) g/dL Albumin 3.8 (3.5-5.0) g/dL Globulin 4.6 H (1.7-4.1) g/dL Albumin/Globulin Ratio 0.8 L (1.0-2.8) Point of Care Testing Glucose POC 121 Imaging Data CTA - brain/neck: Radiologist's Impression: Close Head/Neck CTA (Signed) Melissa Hdez - 02/14/[address] (Signed) Melissa Hdez - 02/14/22 [facility]?[place] [address] CT Scan Report Signed Patient: Lindsey Kemp MR#: [id number] : 1945 Acct:[id number] Age/Sex: 76 / F Date of Service: 02/14/22 Loc: ED Accession Number: [id number] ?? Procedure: CT angio head and neck Ordering Provider: Chuckie El D.O. PROCEDURE:? CT ANGIO HEAD AND NECK ? INDICATIONS:? facial numbness, left arm numbness/weakness ? TECHNIQUE:? After the administration of intravenous contrast, 1 mm thick sections acquired from the aortic arch through the [place] of Power.? Post-contrast 4.5 mm thick sections then re-acquired from the foramen magnum to the vertex.? 3-dimensional feaoeuv-iyuhpnshd-cwksvavohy (MIP) and/or volume rendering reformats were acquired of the central intracranial vasculature and neck separately. For radiation dose reduction, the following was used:? automated exposure control, adjustment of mA and/or kV according to patient size.? ? COMPARISON:? None. ? FINDINGS:? Image quality:? Excellent.? ? BRAIN:? The ventricular system and cortical sulci demonstrate atrophy, consistent for the patient's stated age. There are areas of hypodensity within the periventricular and subcortical white matter.? There is no acute intra-or extra axial fluid collect ion. No acute hemorrhage, mass lesion or midline shift. Brainstem is unremarkable. Globes are symmetrical. Sinuses are aerated. Osseous structures are intact. ? HEAD CT ANGIOGRAPHY:? Anterior circulation:? There is less than 50% narrowing of the supraclinoid internal carotid arteries bilaterally.? The flow within the paired anterior cerebral arteries is normal and symmetric.? The flow within the middle cerebral arteries is normal and symmetric.? The anterior communicating artery is seen.? No aneurysms are seen.? ? Posterior circulation:? There is a left vertebral artery dominance.? Visualized portions of the vertebral arteries demonstrate normal caliber, and join to form a normal appearing basilar artery.? Flow within the posterior cerebral arteries is normal and symmetric.? No aneurysms are seen.? ? NECK CT ANGIOGRAPHY:? The origins of the left and right common, and external carotid arteries demonstrate no areas of hemodynamically significant stenosis, vascular occlusion or aneurysmal dilation there is approximate 20-30% narrowing at the origins of the internal carotid arteries bilaterally.? Origin the right vertebral artery demonstrates no areas of hemodynamically significant stenosis, vascular occlusion or aneurysmal dilation.? 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 There is approximate 50-60% stenosis at the origin. Aortic arch demonstrates conventional anatomy. Limited, visualized portions of the subclavian vasculature are unremarkable. ? ? IMPRESSION:? ? 1. No acute intracranial process. ? 2. Moderate atrophy and chronic microvascular ischemic changes. ? 3. Less than 50% narrowing of the supraclinoid internal carotid arteries bilaterally. ? 4. Approximate 50-60% stenosis at of the left vertebral artery origin.? ? 5. Approximate 20-30% narrowing at the origin of the internal carotid arteries bilaterally.? ? Any quantitative measurements of stenosis were performed using NASCET criteria.? ? ? Dictated by: Melissa Hdez M.D. on 02/14/2022 at 15:03 ? ? Approved by: Melissa Hdez M.D. on 02/14/2022 at 15:10? Discharge Plan Departure Patient Disposition: Admitted as Observation Clinical Impression: Cerebrovascular accident
--- NOTE | 2022-02-14 15:49 | PC.NURSE ---
left sided numbness and tingling on left side of face, and left arm. denies numbness or tingling in legs
[2022-02-14] MEDS: ASPIRIN 81 MG CHEW TAB 324 MG PO (16:45)
--- NOTE | 2022-02-14 17:11 | DI.MRI.S_ITS ---
PROCEDURE: MR HEAD/BRAIN WO CON INDICATIONS: cva? TECHNIQUE: Non-contrast axial T1 spin echo, axial T2 fast spin echo, sagittal and axial FLAIR, coronal T2 fast spin echo, axial gradient echo, axial diffusion and ADC through the brain. COMPARISON: [facility], CT, CT ANGIO HEAD AND NECK, 02/14/2022, 14:31. [facility], CT, CT STROKE, 02/14/2022, 14:31. FINDINGS: Image quality: This examination is limited by involuntary motion artifact. CSF spaces: Ventricles appear prominent. Basal cisterns are patent. No extra-axial fluid collections. Brain: There is an area of increased diffusion-weighted signal seen within the right thalamus measuring 7 mm, as on series 5, image 61. There is associated dark signal seen on the ADC map. Developing increased T2 weighted signal can be seen at this site. No intracranial bleeds or mass effects. There is cerebral volume loss for age. There are periventricular and deep white matter chronic small vessel ischemic changes. Brainstem appears normal. No chronic ischemic insults. Normal intravascular flow voids are present. Skull and face: Calvarial bone marrow is normal in signal. Orbits are normal. Sinuses: Sinuses and mastoids are clear. IMPRESSION: There is a focal subacute infarction seen involving the right thalamus. Abnormally prominent lateral ventricles, which are disproportionately larger than would be expected given the degree sulcal atrophy. Please consider normal pressure hydrocephalus. Dictated by: Cody Blas M.D. on 02/14/2022 at 17:24 Approved by: Cody Blas M.D. on 02/14/2022 at 17:26
[2022-02-14 17:38] LABS: COVID19 -Nasal RAPID Negative (Negative)
--- NOTE | 2022-02-14 18:30 | P.HP_ITS ---
History of Present Illness History of Present Illness Date Patient Seen: 02/14/22 Time Patient Seen: 16:00 Chief complaint: lt arm numb up to face Narrative: 76W with PMH of high blood pressure, remote former smoker, recent COVID diagnosis who presents with left arm numbness. She states her symptoms started yesterday over 24 hours ago. She noted first distal left hand numbness, this then spread up her left arm, it also included the left side of her face. Today she noted the symptoms in her right hand. She noted no speech difficulties. No swallowing difficulties. No symptoms in her legs. In the ED workup was done, vitals notable for afebrile, blood pressure in 130s/70s. Labs notable for WBC 9.4, hgb 10.2, plts 637. Na 135, creatinine 0.83. Trop negative. CT head negative. EKG showed no atrial fibrillation. CTA head/neck showed 50-60% stenosis of left vertebral artery, 50% internal carotid arteries bilaterally. She was ordered for aspirin and admitted for further treatment. Social history: remote history of smoking Family history: no family history of strokes or CAD Patient History Family & Social History Tobacco & Substance use: Smoking Status Former smoker alcohol intake frequency 0-2 drinks per day Substance Use Type does not use Meds Home Medications and Allergies Home Medications Medication Instructions Recorded Confirmed Type amoxicillin 875 mg-potassium 1 tab PO Q12H #20 tabs 02/05/22 Rx clavulanate 125 mg tablet ketorolac 10 mg tablet 10 mg PO Q6H PRN pain #14 tabs 02/05/22 Rx Allergies Allergy/AdvReac Type Severity Reaction Status Date / Time No Known Drug Allergies Allergy Verified 02/05/22 10:14 Review of Systems Review of Systems Narrative: 14 systems reviewed and negative aside from what is noted in HPI Exam Vital Signs (past 8 hours): - 02/14/22 14:05 02/14/22 14:26 02/14/22 14:30 Temperature 97.9 F Pulse Rate 83 79 79 Respiratory Rate 20 21 17 Blood Pressure 139/77 Pulse Oximetry 98 98 100 Oxygen Delivery Method Room Air 02/14/22 14:50 02/14/22 14:50 02/14/22 15:00 Temperature Pulse Rate 84 Respiratory Rate 19 Blood Pressure 138/65 128/63 Pulse Oximetry 100 Oxygen Delivery Method 02/14/22 15:00 02/14/22 15:30 02/14/22 15:30 Temperature Pulse Rate 76 73 Respiratory Rate 18 15 Blood Pressure 145/67 H Pulse Oximetry 100 98 Oxygen Delivery Method 02/14/22 16:00 02/14/22 16:00 02/14/22 16:30 Temperature Pulse Rate 76 Respiratory Rate 16 Blood Pressure 138/65 133/69 Pulse Oximetry 98 Oxygen Delivery Method 02/14/22 16:30 02/14/22 17:00 02/14/22 17:00 Temperature Pulse Rate 80 80 Respiratory Rate 22 20 Blood Pressure 135/68 Pulse Oximetry 99 98 Oxygen Delivery Method 02/14/22 17:30 02/14/22 17:30 Temperature Pulse Rate 83 Respiratory Rate 20 Blood Pressure 133/67 Pulse Oximetry 97 Oxygen Delivery Method Oxygen Delivery Method Room Air Narrative Exam Narrative: GEN: no acute distress HEENT: moist mucous membranes, PERRL NECK: trachea midline, no JVD PULM: clear bilaterally, no wheezes, rhonchi, rales ABD: soft, nontender, nondistended, no organomegaly CV: regular rate and rhythm, no murmurs EXT: warm and well perfused with no edema NEURO: awake, alert, oriented, upper and lower extremity strength 5/5, CN 2-12 intact, sensation intact, noted discoordination of left hand with rapid alternating movements Objective Labs Result Diagrams: 02/14/22 14:32 02/14/22 14:32 Labs: Laboratory Results - last 24 hr 02/14/22 02/14/22 02/14/22 14:32 14:32 16:43 WBC 9.4 RBC 3.16 L Hgb 10.2 L Hct 30.3 L MCV 95.9 MCH 32.1 MCHC 33.5 RDW 15.5 H Plt Count 637 H Neut % (Auto) 71.5 Lymph % (Auto) 14.0 L [place] % (Auto) 13.6 Eos % (Auto) 0.1 L Baso % (Auto) 0.8 Neut # (Auto) 6700 Lymph # (Auto) 1300 [place] # (Auto) 1300 H Eos # (Auto) 0 Baso # (Auto) 100 Sodium 135 L Potassium 3.1 L Chloride 94 L Carbon Dioxide 26 BUN 12 Creatinine 0.83 Estimated GFR > 60 BUN/Creatinine Ratio 14.5 Glucose 125 H Calcium 9.2 Total Bilirubin 0.3 AST 43 H ALT 27 Alkaline Phosphatase 185 H Total Creatine Kinase < 20 L CK-MB (CK-2) TNP CK-MB (CK-2) Rel Index TNP Troponin I < 0.012 Total Protein 8.4 H Albumin 3.8 Globulin 4.6 H Albumin/Globulin Ratio 0.8 L SARS-CoV-2 (PCR) Negative Assessment & Plan Assessment & Plan narrative: 1. TIA vs CVA -she presented with now resolving neuro symptpoms of bilateral extremity numbness, poor coordination, and left facial nubmness -symptoms resolving -NIH 1 on admission -NIH q4h -continue aspirin, statin -tele to eval for arrhythmia -echo, mri ordered -a1c, lipids for modifiable risk factors -PT/OT, speech therapy eval ordered 2. Anemia -mild -no indication for transfusion 3. Reported hypertension -allow permissive hypertension -on no medication as outpatient 4. Mild hypokalemia, hyponatremia -trend -likely will improve with continued nutrition CODE: Full Proxy: Serafin Kemp, son I have tuilized all available resources to reconcile the patient's home medications Time Spent With Patient Critical Care time: I spent a total of [] minutes of critical care time on this patient's care today; this time is exclusive of procedural time.
--- NOTE | 2022-02-14 18:42 | PC.NURSE ---
pt arrived from ED at 1820, settled in room. She gets up to void large void, ambulates with slight limp on Left side (missed collection hat). VSS,afebrile on RA, placed on telemetry. She passes nurses swallow screen. Speech is clear, however she reports some lingering numbness to L side of mouth improving and some numbness/tingling to LUE down to LLE. Noted discordination of fine motor skills bilaterally > on the left. Very minimal drift of LLE (doesnt touch the bed). Settled in room, oriented to call light and instructed to call for getting out of bed. Bed alarm placed, call light within reach, continuous montitoring.
[2022-02-14] MEDS: ATORVASTATIN 20 MG TABLET 80 MG PO (20:42)
[2022-02-15] VITALS: BP 127/80; PULSE 76; RESP 18; TEMP 36.6; O2SAT 98
[2022-02-15] MEDS: TRAZODONE 50 MG TABLET PO (00:24)
[2022-02-15 04:25] VITALS: BP 131/71; PULSE 77; RESP 18; TEMP 36.3; O2SAT 98
[2022-02-15 04:32] LABS: UR Morphine/Opiate cutoff 300 Negative (Negative); Ur Creatinine Normal (Normal); Ur Specific Gravity Normal (Normal); Urine Amphetamines Negative (Negative); Urine Barbiturates Negative (Negative); Urine Benzodiazepines Positive (Negative); Urine Cocaine Negative (Negative); Urine MDMA Negative (Negative); Urine Methadone Negative (Negative); Urine Methamphetamines Negative (Negative); Urine Oxycodone Positive (Negative); Urine Phencyclidine Negative (Negative); Urine Tetrahydrocannabinol Negative (Negative); Urine Tricyclic Antidepressant Negative (Negative); Urine pH Normal (Normal)
[2022-02-15 06:08] LABS: Add Manual Diff / Slide Review NO; Basophils Absolute Auto 100 /uL (0-100); Basophils Percent Auto 0.6 % (0-2); Eosinophils Absolute Auto 100 /uL (0-450); Eosinophils Percent Auto 0.6 % (2-4); Hematocrit 27.5 % (36-46); Hemoglobin 9.4 g/dL (12.0-16.0); Lymphocytes Absolute Auto 1200 /uL (1100-4500); Lymphocytes Percent Auto 14.8 % (25-40); Mean Corpuscular Hemoglobin 32.3 PG (26-34); Mean Corpuscular Volume 94.9 fL (80-100); Monocytes Absolute Auto 900 /uL (0-900); Monocytes Percent Auto 10.7 % (3-14); Neutrophils Absolute Auto 6100 /uL (1500-7000); Neutrophils Percent Auto 73.3 % (50-75); Platelet Count 582 X10^3/uL (150-400); Red Cell Distribution Width 15.4 % (11.6-14.8); White Blood Cell Count 8.3 X10^3/uL (4.5-11.0)
[2022-02-15 06:20] LABS: BUN Creatinine Ratio 10.5 (6-22); Blood Urea Nitrogen 6 mg/dL (7-17); Calcium 8.5 mg/dL (8.4-10.2); Carbon Dioxide 27 mmol/L (22-32); Chloride 99 mmol/L (98-107); Cholesterol 129 mg/dL (140-199); Estimated Glomerular Filt Rate > 60 mL/min (>60); Glucose 110 mg/dL (80-110); HDL Cholesterol 25 mg/dL (40-60); HEMOLYSIS < 15 (0-50); LDL Cholesterol Calculated 83 mg/dL (<100); Potassium 3.1 mmol/L (3.4-5.1); Sodium 135 mmol/L (137-145); Triglycerides 103 mg/dL (35-150)
[2022-02-15 06:24] LABS: Hemoglobin A1C% w Est Avg Glu 5.1 % (4.0-6.0)
[2022-02-15 07:00] VITALS: BP 134/72; PULSE 86; RESP 18; TEMP 36.3; O2SAT 99
[2022-02-15] MEDS: CLOPIDOGREL 75 MG TABLET PO (08:20)
[2022-02-15] MEDS: ASPIRIN EC 81 MG TABLET PO (08:21)
[2022-02-15] MEDS: ENOXAPARIN 40 MG/0.4 ML SYRINGE SUBCUT (08:25)
[2022-02-15] MEDS: POTASSIUM CHLORIDE 20 MEQ TAB 40 MEQ PO (11:03)
--- NOTE | 2022-02-15 11:04 | ST.IPSCREEN ---
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 She reported no difficulty swallowing or speaking, though stated she has been biting her lip and cheek due to numbness on her left side. She added the numbness has improved since yesterday. Completed oral motor exam with pt. Structures were symmetrical at rest and in motion with exception of uvula, which deviated to right. Dentition was present and WNL. Structure and function of oral mechanism appeared WNL for the purposes of speech and swallowing. Speech was clear and 100% intelligible. Completed swallow screen with thin liquid through straw cup. Pt exhibited no signs or symptoms of aspiration. Provided education on numbness, which should continue to resolve on its own. Speech therapy is not indicated at this time.
[2022-02-15 11:59] VITALS: BP 126/65; PULSE 88; RESP 20; TEMP 36.6; O2SAT 99
--- NOTE | 2022-02-15 12:00 | OT.IP.EVAL ---
Current Diagnoses Cerebral infarction, unspecified (02/14/22) Occupational Therapy Inpatient Evaluation/Re-Eval M1 PT/OT-IP Prior Functional Status Start: 02/15/22 13:10 Freq: NEEDED Status: Discharge Protocol: Document 02/15/22 12:05 AB (Rec: 02/15/22 13:11 AB [id number]) Medical Review Prior Functional Status Medical History Reviewed Yes Communication able to make needs known Mobility and Gait pt stated that she is independent with all mobilities and ambulation without AD Social History Household Members spouse,family Living Arrangements House Number of Floors (Floors) 3 or More Floors Number of Stairs To Enter/Railing? 2 steps R rail to enter 8 steps R rail to get to main level of the house Home Environment High Toilet,Tub/Shower Home Equipment Front Wheel Walker,Four Wheel Walker,Straight Cane Additional Social History Comment pt has her spouse, son and DIL to assist her at home M2 OT-IP Current Condition Start: 02/15/22 15:59 Freq: Status: Discharge Protocol: Document 02/15/22 10:39 [facility] (Rec: 02/15/22 16:23 [facility] [id number]) Occupational Therapy Current Condition Current Condition Evaluation Date 02/15/22 Treatment Diagnosis CVA Diagnosis Onset Date 02/14/22 M3 OT- IP Subjective and Pain Start: 02/15/22 15:59 Freq: Status: Discharge Protocol: Document 02/15/22 10:39 [facility] (Rec: 02/15/22 16:23 [facility] [id number]) OT- Subjective Occupational Therapy Visit Type Type Initial Evaluation Visit Start Time 10:39 Visit Stop Time 12:00 Total Visit Minutes 81 Occupational Therapy Visit Comments Patient Comments Pt agreed to work with OT. Patient/Caregiver Goals TO go home OT Pain Assessment Pain When Pain Assessed At Rest Pain Present Pain Present Pain Reported Location neck Intensity 5 M4 OT- IP ADL's Start: 02/15/22 15:59 Freq: Status: Discharge Protocol: Document 02/15/22 10:39 [facility] (Rec: 02/15/22 16:23 [facility] [id number]) OT [id number] Comments OT Self-Feeding Comments Pt noted to cough while drinking water and taking large pills, ALARM INSTALLATION TECHNICIAN notified. OT ADL-Grooming General Evaluation Grooming Ability Standby Assistance Comments OT Grooming Comments Pt able to do while standing with FWW. OT ADL-Oral Care General Eval Oral Care Ability Standby Assistance Areas of Assistance Retrieving/Set-Up of Items Comments Oral Care Comments Assist to open packaging for grooming needs. OT ADL-Dressing General Eval Lower Body Dressing Ability Standby Assistance Comments OT Dressing Comments Pt able to alisia/doff her socks but using right hand more than left side at this time to complete. OT ADL-Toileting Comments OT Toileting Comments Pt not having to use the bathroom at this time. OT ADL-Bathing Comments OT Bathing Comments Not performed, to try tomorrow when pt is not so tired. M5 OT- IP IADL's Start: 02/15/22 15:59 Freq: Status: Discharge Protocol: Document 02/15/22 10:39 [facility] (Rec: 02/15/22 16:23 [facility] [id number]) OT-Instrumental Activities of Daily Living Deficits IADL Deficits Identified Deficits Home Safety Awareness Awareness of Need for Assistance at Home Good Awareness Ability to Problem Solve Emergency Unable to Problem Solve Situations Home Safety Comments Pt having trouble to answer home safety questions and needing increased time to answer and also unaware what to do in case the toilet were to overflow. Medication Management Medication Management Caregiver Provides Supervision Medication Management Comments At this time due to her decreased cognitive needs would be best for her family to provide assist. Money Management Money Management Caregiver Provides Assistance Money Management Comments Per pt her son has just recently taken over doing all the finances. Meal Preparation Meal Preparation Comments At this time would be best for her family to assist for her needs. Lumber Stacker Lumber Stacker Caregiver Provides Assist Driving Driving Comments Pt is aware that at this time not safe to drive. M6 OT- IP Functional Cognition Start: 02/15/22 15:59 Freq: Status: Discharge Protocol: Document 02/15/22 10:39 [facility] (Rec: 02/15/22 16:23 [facility] [id number]) Cognitive Factors Limiting Selfcare Function Cognitive Ability Level of Alertness Alert Patient Orientation Name,Place,Situation Attention Span Ability Capable of Focused Attention, Capable of Sustained Attention Ability to Follow Commands Able to Follow One Step Commands Memory Description Working Impaired Safety Awareness Underestimates Need for Assistance Problem Solving Ability Needs Assist to Identify Solutions Cognitive Comments Cognitive Assessment Comments Pt needing safety cues for FWW use , vc to make sure her legs touch the surface before sitting down and that the FWW in with her and instead on letting go too early to sit to surfaces. Pt scored 472 seconds on [place] [employer] Part B which implies severe impairments for visual attention, speed of processing , executive functioning, mental flexibility, and task switching. Pt is well aware that she is not safe to drive at this time. OT- Vision and Hearing OT- Hearing Assessment OT- Hearing Assessment WFL OT- Vision Assessment Visual Acuity Glasses All The Time Visual Attentiveness WFL Occular Pursuits WFL Visual Convergence WFL Visual [place] WFL Diplopia Absent Visual Spacial Neglect Left Vision Assessment Comments Pt's head at rest turns to the right and therefore at times not able to see and bumps into objects on the left with the FWW. Educated to turn her head in order to see better. Pt will also benefit from gentle stretching of her neck due to tightness. M7 OT- IP Mobility and Balance Start: 02/15/22 15:59 Freq: Status: Discharge Protocol: Document 02/15/22 10:39 [facility] (Rec: 02/15/22 16:23 [facility] [id number]) OT-Transfer Assessment Sit to and From Stand Sit to and from Stand Contact Guard Assistance, Minimal Assistance Transfers Transfer Ability Contact Guard Assistance, Minimal Assistance Technique Transfer Destination Chair Transfer Technique Stand Step Pivot Devices Transfer Assistive Devices Gait Belt,Front Wheeled Walker Comments Mobility Comments CGA with FWW to walk and tends to leans to the left. Without use of the FWW, pt needing JESSICA for balance. OT- Balance Assessment Sitting Balance and Reactions Static Sitting Balance Ability Good Dynamic Sitting Balance Ability Fair Standing Balance and Reactions Static Standing Balance Ability Fair Dynamic Standing Balance Ability Poor M8 OT- IP Objective Assessments Start: 02/15/22 15:59 Freq: Status: Discharge Protocol: Document 02/15/22 10:39 [facility] (Rec: 02/15/22 16:23 [facility] [id number]) OT Gross Range of Motion Upper Extremity Range of Motion Assessment Within Functional Limits ROM Impairments grossly WFL OT Strength Comments Strength Comments RUE 4/5, LUE 4-/5 OT- Coordination Assessment Upper Extremity Finger to Nose Test Left UE Impaired Finger Tapping Test Left UE Impaired Comments Coordination Comments Right hand 35 seconds and left hand 47 seconds for 9 hole peg. OT-Muscle Tone Assessment Muscle Tone WNL Yes M9 OT- IP Assessment and Plan Start: 02/15/22 15:59 Freq: Status: Discharge Protocol: Document 02/15/22 10:39 [facility] (Rec: 02/15/22 16:23 [facility] [id number]) OT Summary Assessment and Plan Potential Rehabilitation Potential Good Analytic Complexity at Evaluation Moderate Summary OT Impairments Range of Motion,Strength, Balance,Coordination,Sensation ,Functional Cognition, Functional Mobility,Self- Feeding,Grooming,Dressing, Toileting,Bathing,Toilet Transfers,Shower Transfers, Activity Tolerance Progress Towards Goals Slow Progress due to Activity Tolerance,Slow Progress due to Cognition Assessment Summary Pt MOD complexity and main barriers are decreased balance , coordination, strength, and now needing assist for mobility and ADl needs. Pt would greatly benefit from outpt therpy versus home health and someone to be available to assist her at this time. Goals Self-Feeding Goal Independent Grooming Goal Independent Dressing Goal Independent Toileting Goal Independent Bathing Goal Independent Toilet Transfer Goal Independent Shower Transfer Goal Independent Days to Meet Goals 20 Frequency of Treatment Frequency Of Treatment Once a Day Treatment Plan OT Treatment Plan ADL Training,Functional Cognition Training,Functional Mobility,Patient/Family Education,Discharge Planning Discharge Recommendations OT Discharge Recommendations Home with 07/11 Assist Available,Home Health, Outpatient PT Home Equipment Needs BSC, shower chair, grab bars for shower Transportation Needs at Discharge Private Vehicle
--- NOTE | 2022-02-15 12:05 | PT.IIE ---
Current Diagnoses Cerebral infarction, unspecified (02/14/22) Physical Therapy Inpatient Evaluation/Re-Eval M1 PT/OT-IP Prior Functional Status Start: 02/15/22 13:10 Freq: NEEDED Status: Discharge Protocol: Document 02/15/22 12:05 [facility] (Rec: 02/15/22 16:29 [email or web address]) Medical Review Prior Functional Status Medical History Reviewed Yes Communication able to make needs known Mobility and Gait pt stated that she is independent with all mobilities and ambulation without AD Social History Household Members spouse,family Living Arrangements House Number of Floors (Floors) 3 or More Floors Number of Stairs To Enter/Railing? 2 steps R rail to enter 8 steps R rail to get to main level of the house Home Environment High Toilet,Tub/Shower Home Equipment Front Wheel Walker,Four Wheel Walker,Straight Cane Additional Social History Comment pt has her spouse, son and DIL to assist her at home M2 PT-IP Current Condition Start: 02/15/22 13:10 Freq: NEEDED Status: Discharge Protocol: Document 02/15/22 12:05 [facility] (Rec: 02/15/22 16:29 [email or web address]) Physical Therapy Current Condition Current Condition Evaluation Date 02/15/22 Treatment Diagnosis CVA; difficulty in walking Onset Date 02/14/22 M3 PT-IP Subjective Start: 02/15/22 13:10 Freq: NEEDED Status: Discharge Protocol: Document 02/15/22 12:05 AB (Rec: 02/15/22 16:29 [email or web address]) Subjective Physical Therapy Visit Type Type Initial Evaluation Visit Start Time 12:05 Visit Stop Time 14:30 Total Visit Minutes 85 Notes pt seem for split visits: 1205 to 1215; 1315 to 1430: initiated eval but lunch came up and pt wants to eat first. Number of FRAMING MACHINE TENDER Visits 0 Physical Therapy Visit Comments Patient Comments agreeable to do PT M4 PT-IP Mobility and Gait Start: 02/15/22 13:10 Freq: NEEDED Status: Discharge Protocol: Document 02/15/22 12:05 AB (Rec: 02/15/22 16:29 [email or web address]) PT-Bed Mobility Assessment Supine to Sit Supine to Sit Standby Assistance Sit to Supine Sit to Supine Standby Assistance PT-Transfer Assessment Sit to and From Stand Sit to and from Stand Standby Assistance,1 Person Assistance,Use of Upper Extremities Equipment Transfer Assistive Device None,Gait Belt Orthotic/Prosthetic Devices or Brace: No Comments Mobility Comments pt supine in bed and completed supine to sit SBA. able to sit on EOB SBA. completed sit to stand SBA and ambulated in room without AD SBA to CGA ~ 20 ft in room. presents with antalgic gait with increase L sided knee flexion during midstance and L trunk forward lurch with initial swing phase . educated pt on COG, weight shifting and L glute/quads activation during ambulation. pt completed ambulation again in room without AD SBA to CGA ~ 30 ft and cues provided. pt with decrease motor planning/coordination affecting ambulation. pt ambulated in the hallway without AD SBA to CGA ~ 100 ft . pt with seated rest break. educated on stair climbing using R rail ascending. completed up/down step s x 2 sets requiring min to mod A and cues. pt ambulated back to her room without AD SBA to CGA 100 ft. informed pt that she will need assistance with mobility and agreed. educated pt's spouse and son on how to use safety belt for mobility and how to assist pt . spouse and son able to put safety belt on pt. pt ambulated in room using FWW SBA and cues for safety. pt went back to bed SBA for sit to supine. call light and table placed within reach. Gait Assessment Gait Gait Assistance Required: Standby Assistance,Contact Guard Assist,1 Person Assist Distance (Feet) 100 Able to Maintain Weight Bearing Status Yes During Gait Assistive Devices Assistive Device None,Gait Belt,Front Wheeled Walker Orthotic/Prosthetic Devices or Brace: No Gait Deviations General Gait Pattern Antalgic,Decreased Stride Length,Decreased Feet Clearance,Step-to Gait Factors Limiting Gait Function Factors Limiting Gait Function Decreased Activity Tolerance, Decreased Strength,Difficulty Following Directions,Limited Range of Motion,Pain,Poor Balance,Poor Safety Awareness Stair Climbing Assessment Evaluation Level of Assist On Stairs Minimal Assistance,Moderate Assistance Devices Stair Climbing Assistive Devices Right Railing Technique/Endurance Stair Climbing Direction Ascend and Descend Stair Climbing Technique Step to Step Number of Steps Climbed 3 Query Text: Stair Climbing Set # Repetitions (reps) 2 PT-Balance Assessment Sitting Balance and Reactions Static Sitting Balance Ability Normal Dynamic Sitting Balance Ability Good Standing Balance and Reactions Static Standing Balance Ability Fair Dynamic Standing Balance Ability Fair Device Used without AD M5 PT-IP Objective Assessments Start: 02/15/22 13:10 Freq: NEEDED Status: Discharge Protocol: Document 02/15/22 12:05 [facility] (Rec: 02/15/22 16:29 AB [id number]) Orientation Orientation/Cognition Level of Alertness Alert Orientation Name,Place,Situation Language Function Ability No Deficits Noted Safety Awareness Decreased Safety Awareness Memory Description Short Term Impaired Gross Range of Motion Lower Extremity ROM Assessment Within Functional Limits Strength Comments Strength Comments RLE: 4-/5 LLE: 3+/5 Coordination Assessment Assessment Coordination Comments decrease motor planning Muscle Tone Muscle Tone WNL Yes M6 PT-IP Treatment Start: 02/15/22 13:10 Freq: NEEDED Status: Discharge Protocol: Document 02/15/22 12:05 AB (Rec: 02/15/22 16:29 AB [id number]) Physical Therapy Treatment Education Education Provided Safety M7 PT-IP Assessment and Plan Start: 02/15/22 13:10 Freq: NEEDED Status: Discharge Protocol: Document 02/15/22 12:05 AB (Rec: 02/15/22 16:29 AB [id number]) PT Summary Assessment and Plan Potential Rehabilitation Potential Fair Status of Condition at Evaluation Evolving Summary Impairments Pain,ROM,Strength,Balance, Coordination,Sensation,Tone, Cognition,Bed Mobility, Transfers,Gait,Activity Tolerance Assessment Summary pt requiring SBA to CGA with ambulation without AD. presents with unsteady gait and recommending use of FWW at this time. pt needs min to mod A for stair climbing and son will assist pt as needed. pt with previous L hip problems affecting balance and ambulation. pt will needs HHPT vs outpt PT. Goals Bed Mobility Goal Independent Transfer Goal Independent,Front Wheeled Walker Gait Goal Independent,Front Wheel Walker Gait Distance 200 Other Goals improve ambulation without AD 200 ft mod i up/down 8 steps R rail ascending SBA Days to Meet Goals 10 Frequency of Treatment Frequency Of Treatment Once a Day Treatment Plan Physical Therapy Treatment Plan Bed Mobility Training,Transfer Training,Gait Training, Therapeutic Exercise,Balance Retraining,Discharge Planning, Hot or Cold Pack,Neuromuscular Re-ed,Coordination Retraining ,Manual Therapy Precautions Other Precautions falls Recommendations To Nursing Amount of Assist Needed 1 Person Assist Discharge Recommendations PT Discharge Recommendations Home with 07/11 Assist Available,Home Health, Outpatient PT Transportation Needs at Discharge Private Vehicle,Wheelchair/ Cabulance
--- NOTE | 2022-02-15 12:33 | CM.DANOTE ---
DCP Assessment Note Patient is 76 y/o female who presents to due to concern for facial numbness. Patient was admitted due to concern for TIA vs. CVA. Patient's PCP is Dr. Noman Bahena, patient has Medicare and [facility] Medicare insurance. Patient presents as A/Ox4. Patient endorses independence with ADLs at baseline but believes she will need some assistance with PT and OT due to recent TIA. Patient denies hx of DME, but family with access syroptomist if DME is needed for patient. Patient has been assessed by LOOM MECHANIC and OT. PT has yet to assess patient. Per LOOM MECHANIC, patient has no further LOOM MECHANIC needs upon d/c. OT recommends outpatient OT vs. HH. Patient endorses she relies on her son to drive and patient endorses preference for HH. INDUCTION MACHINE OPERATOR discusses HH options and patient denies preference for HH. INDUCTION MACHINE OPERATOR endorses INDUCTION MACHINE OPERATOR will make referral and provide patient with agency information. Per [facility] rotation, INDUCTION MACHINE OPERATOR to submit referral to [facility] for PT and OT. F2F completed and to be scanned into medical records. INDUCTION MACHINE OPERATOR to call [facility]. With patient's permission, INDUCTION MACHINE OPERATOR calls patient's son Serafin to confirm that she will be moving in with him, confirms address and patient's PCP. Plan: Patient to d/c to son's home upon medical clearance today or tomorrow after PT eval. Patient to d/c with [facility]. JESSICA Soto Discharge Planning/Care Management CM Discharge Assessment Start: 02/15/22 12:27 Freq: Status: Active Protocol: Document 02/15/22 12:27 LN (Rec: 02/15/22 12:33 LN [id number]) Discharge Planning Assessment Assigned Animal Surgeon JESSICA Mauro Advance Directives? No History Provided By Patient,Medical Record Has Patient been admitted in last 30 No days? Prior Living Arrangements House Household Members spouse,family Comment Patient is about to move in with to son's home upon d/c from . Type of transporation used prior to Relies on Others admit Independent with ADL's Yes: Independent at baseline Is patient alert and oriented? Yes Patient/Family Preference Home with Home Health Discharge Plan Home with Home Health Referrals Initiated Home Health If patient plan is home with home health Yes : Has signed face to face form been completed? SNF/HH Preference Patient denies HH preference. Please Provide Date Initial DC 02/15/22 Assessment Was Performed
--- NOTE | 2022-02-15 14:52 | PM.DS.1 ---
History of Present Illness History of Present Illness Date Patient Seen: 02/15/22 Time Patient Seen: 14:52 Chief complaint: lt arm numb up to face Narrative: Per Dr. Sánchez, 76W with PMH of high blood pressure, remote former smoker, recent COVID diagnosis who presents with left arm numbness. She states her symptoms started yesterday over 24 hours ago. She noted first distal left hand numbness, this then spread up her left arm, it also included the left side of her face. Today she noted the symptoms in her right hand. She noted no speech difficulties. No swallowing difficulties. No symptoms in her legs. In the ED workup was done, vitals notable for afebrile, blood pressure in 130s/70s. Labs notable for WBC 9.4, hgb 10.2, plts 637. Na 135, creatinine 0.83. Trop negative. CT head negative. EKG showed no atrial fibrillation. CTA head/neck showed 50-60% stenosis of left vertebral artery, 50% internal carotid arteries bilaterally. She was ordered for aspirin and admitted for further treatment. Social history: remote history of smoking Family history: no family history of strokes or CAD Discharge Providers Provider Date of admission: 02/14/22 17:00 Discharge Date: 02/15/22 Consults: 02/14/22 18:29 Consult to Discharge Planning Routine Comment: Consult to Occupational Therapy Evaluate & Treat Comment: Physician Instructions: Evaluate and treat Consult to Physical Therapy Evaluate & Treat Comment: Physician Instructions: Evaluate and Treat Consult to Speech Therapy Evaluate & Treat Comment: Physician Instructions: Evaluate and treat 02/15/22 12:46 Consult to Home Health Routine Comment: OT and PT Reason For Exam: HH referral Discharge provider: Tyler Joshi DO Summary Hospital Course Discharge Diagnosis: 1. Acute CVA 2. Chronic Anemia 3. Essential hypertension 4. Mild hypokalemia, hyponatremia Hospital Course: This is a 76 year old female admitted with Left sided arm numbness. She had improvement of her symptoms over the course of admission. MRI did show evidence of a CVA corresponding to her symptoms. Echocardiogram could not be performed prior to discharge and is recommended as an outpatient if deemed necessary or if she has no prior echo to assess for PFO. She was started on aspirin and statin therapy. Plavix was also added for further risk reduction. She was evaluated by PT/OT and speech therapy and was deemed appropriate for discharge home. She will follow up with her PCP in [place], her usual place of residence. Her BP was well controlled on her home medications. No other medication changes are recommended at this time. Exam Vital Signs (past 8 hours): - 02/15/22 07:00 02/15/22 11:59 02/15/22 07:00 Temperature 97.4 F L 97.8 F Pulse Rate 86 88 Respiratory Rate 18 20 Blood Pressure 134/72 126/65 Pulse Oximetry 99 99 99 Oxygen Delivery Method Room Air Oxygen Flow Rate 0 0 Oxygen Delivery Method Room Air Oxygen Flow Rate 0 Narrative Exam Narrative: GEN: no acute distress HEENT: moist mucous membranes, PERRL NECK: trachea midline, no JVD PULM: clear bilaterally, no wheezes, rhonchi, rales ABD: soft, nontender, nondistended, no organomegaly CV: regular rate and rhythm, no murmurs EXT: warm and well perfused with no edema NEURO: awake, alert, oriented, upper and lower extremity strength 5/5, CN 2-12 intact, sensation intact to light touch in all extremities, slightly diminished in the Left. Objective Labs Result Diagrams: 02/15/22 05:58 02/15/22 05:58 Labs: Laboratory Results - last 24 hr 02/14/22 02/14/22 02/15/22 14:32 16:43 04:15 WBC RBC Hgb Hct MCV MCH MCHC RDW Plt Count Neut % (Auto) Lymph % (Auto) [place] % (Auto) Eos % (Auto) Baso % (Auto) Neut # (Auto) Lymph # (Auto) [place] # (Auto) Eos # (Auto) Baso # (Auto) Sodium 135 L Potassium 3.1 L Chloride 94 L Carbon Dioxide 26 BUN 12 Creatinine 0.83 Estimated GFR > 60 BUN/Creatinine Ratio 14.5 Glucose 125 H Hemoglobin A1c Calcium 9.2 Total Bilirubin 0.3 AST 43 H ALT 27 Alkaline Phosphatase 185 H Total Creatine Kinase < 20 L CK-MB (CK-2) TNP CK-MB (CK-2) Rel Index TNP Troponin I < 0.012 Total Protein 8.4 H Albumin 3.8 Globulin 4.6 H Albumin/Globulin Ratio 0.8 L Triglycerides Cholesterol LDL Cholesterol, Calc HDL Cholesterol U Opiates 300ng/mL cut Negative Ur Oxycodone Screen Positive H Urine Methadone Screen Negative Ur Barbiturates Screen Negative U Tricyclic Antidepress Negative Ur Phencyclidine Scrn Negative Ur Amphetamines Screen Negative U Methamphetamines Scrn Negative Ur MDMA Scrn (Ecstasy) Negative U Benzodiazepines Scrn Positive H Urine Cocaine Screen Negative U Marijuana (THC) Screen Negative SARS-CoV-2 (PCR) Negative 02/15/22 02/15/22 02/15/22 05:58 05:58 05:58 WBC 8.3 RBC 2.90 L Hgb 9.4 L Hct 27.5 L MCV 94.9 MCH 32.3 MCHC 34.0 RDW 15.4 H Plt Count 582 H Neut % (Auto) 73.3 Lymph % (Auto) 14.8 L [place] % (Auto) 10.7 Eos % (Auto) 0.6 L Baso % (Auto) 0.6 Neut # (Auto) 6100 Lymph # (Auto) 1200 [place] # (Auto) 900 Eos # (Auto) 100 Baso # (Auto) 100 Sodium 135 L Potassium 3.1 L Chloride 99 Carbon Dioxide 27 BUN 6 L Creatinine 0.57 Estimated GFR > 60 BUN/Creatinine Ratio 10.5 Glucose 110 Hemoglobin A1c 5.1 Calcium 8.5 Total Bilirubin AST ALT Alkaline Phosphatase Total Creatine Kinase CK-MB (CK-2) CK-MB (CK-2) Rel Index Troponin I Total Protein Albumin Globulin Albumin/Globulin Ratio Triglycerides 103 Cholesterol 129 L LDL Cholesterol, Calc 83 HDL Cholesterol 25 L U Opiates 300ng/mL cut Ur Oxycodone Screen Urine Methadone Screen Ur Barbiturates Screen U Tricyclic Antidepress Ur Phencyclidine Scrn Ur Amphetamines Screen U Methamphetamines Scrn Ur MDMA Scrn (Ecstasy) U Benzodiazepines Scrn Urine Cocaine Screen U Marijuana (THC) Screen SARS-CoV-2 (PCR) [facility] Social History household members: spouse and family Smoking Status: Former smoker alcohol intake: current Discharge Plan Discharge Plan Patient Disposition: Home Provider Discharge Comment: You were admitted to the hospital with a stroke. Thankfully you do not have any profound deficits. You are started on medications for reducing future stroke risk. Please follow up with your PCP at home to continue aspirin and statin medications. Ideally you should see them within 1 month. Discharge orders & Medications Prescriptions: New aspirin 81 mg Tablet,Delayed Release (Dr/Ec) 81 mg PO DAILY 30 Days Qty: 30 0RF atorvastatin 80 mg tablet 80 mg PO BEDTIME 30 Days Qty: 30 0RF clopidogrel 75 mg Tablet 75 mg PO DAILY 20 Days Qty: 20 0RF Continued trazodone 50 mg Tablet 50 mg PO BEDTIME metoprolol succinate [Toprol XL] 100 mg Tablet Extended Release 24 Hr 100 mg PO DAILY amlodipine 5 mg Tablet 5 mg PO BID duloxetine 30 mg Capsule,Delayed Release(Dr/Ec) 30 mg PO DAILY Diet/Activity/Treatments Diet: Diet as Tolerated Activity: TOLERATED Visit Report/Discharge Packet Instructions: DI for Stroke-Ischemic, Right Brain Stroke Quality VTE Deep Vein Thrombosis/Pulmonary Embolism Present on Admission: No
--- NOTE | 2022-02-15 15:18 | PC.NURSE ---
Pt is A&Ox3, VSS, afebrile. She calls appropriately for assistance walking to [place] with FWW. She has a Left foot drop (baseline from prior hip surgery) she states not new from affects of stroke. She is able to void and has a BM today, denies dizziness, vision changes, n/v, headache. She is evaluated by PT/OT this a.m and afternoon. She ambulates in the ni with therapist, and has a fair appetite for breakfast and lunch. K+ supplement provided. Tylenol given for soreness in her neck. Her son is at her bedside this afternoon. She is cleared for discharge home with home health. CM at bedside discussing home health with son and patient. MD at bedside confirming plan for discharge this afternoon with new orders. Pt and son verbalize acknowledgement and understanding of medications, activity, follow up appointments. She is escorted via w/ch to private vehicle with son for discharge home this afternoon with all of her belongings.
== END 2022-02-15 16:00 | disposition home health service (06) | DRG 65 ==
LOC: ED 16:38 → AC 02-15 08:02
PROVIDERS: Admitting Provider Internal Medicine; Emergency Provider Emergency Medicine; Referring Provider Emergency Medicine; Visit Provider Internal Medicine
DX: I63.9 Cerebral infarction, unspecified (principal); E87.1 Hypo-osmolality and hyponatremia; R20.0 Anesthesia of skin; R29.701 NIHSS score 1; I10 Essential (primary) hypertension; E87.6 Hypokalemia; Z20.822 Contact with and (suspected) exposure to COVID-19; Z87.891 Personal history of nicotine dependence
CPT/HCPCS: 36415; 70450; 70496; 70498; 70551; 80048; 80053; 80061; 80305; 82550; 82962; 83036; 84484; 85025; 87635; 93005; 97116; 97162; 97166; 97530; 97535; 99285; C9803; J1650; Q9967